=== PATIENT | female | born 1990 | race African-American/Black ===

== ENCOUNTER 2016-10-20 19:58 | Emergency (ER) | payer MEDICAID ==
[~2016-10-20] VITALS: Ht 170.2 cm; Wt 106.0 kg
[2016-10-20 21:22] VITALS: BP 117/75
== END 2016-10-21 04:44 | disposition left against medical advice (07) ==
LOC: ER 10-21 04:29
DX: M54.9 Dorsalgia, unspecified (principal); Z53.21 Procedure and treatment not carried out due to patient leaving prior to being seen by health care provider